=== PATIENT | female | born 1995 | race Caucasian/White ===

== ENCOUNTER 2017-05-02 13:48 | Outpatient (CLI) | payer OTHER ==
[2017-05-02 14:46] LABS: Glucose,Whole Blood 95 mg/dL (75-99)
[2017-05-02 15:32] VITALS: BP 127/78; PULSE 80; RESP 16; TEMP 97.6
--- NOTE | 2017-05-02 17:47 | P.MSEPDOC ---
Presenting Problems - Arrival Data Date of Arrival on Unit: 05/02/17 Time of Arrival on Unit: 14:00 Mode of Transport: Ambulatory - Complaint OB-Reason for Admission/Chief Complaint: Observation/Evaluation, Other Comment: back and groin pressure. moved from [facility] unable to find dr here. last saw dr at 35 weeks. hx of pi and deit controlled gestational diabetes. now 36 6/7 . Medical History - Information : 2 Para: 1 Term: 1 : 0 Abortions: Spontaneous or Elective: 0 Number of Living Children: 1 - Gestational Age Gestational Age by FERMIN (wks/days): 36 Weeks and 6 Days - History Complications: Other Review of Systems - Review of Systems Constitutional: No problems Breast: No problems ENT: No problems Cardiovascular: No problems Respiratory: No problems Gastrointestinal: No problems Genitourinary: No problems Musculoskeletal: No problems Neurological: No problems Skin: No problems Vital Signs - Temperature Temperature: 97.6 F Temperature Source: Tympanic - Pulse Right Apical Pulse Rate: 80 Pulse Assessment Method: Automatic Cuff - Respirations Respiratory Rate: 16 Oxygen Delivery Method: Room Air O2 Sat by Pulse Oximetry: 98 - Blood Pressure Right Arm Blood Pressure: 127/78 Blood Pressure Mean: 94 Blood Pressure Source: Automatic Cuff Medical Screen Scoring (Pre) - Cervical Exam Dilation: 0 cm = 0 Effacement: More than 50% = 2 Membranes: Intact - Uterine Contractions Frequency: > or = 36 weeks =2 Duration: N/A Intensity: N/A - Maternal Vital Signs Maternal Temperature: N/A Maternal Blood Pressure: N/A Signs of Preeclampsia: N/A Maternal Respirations: N/A - Maternal Trauma Maternal Trauma: N/A - Assessment Baseline FHR: 140 Heart Rate - NICHD Category: Category I (Normal) = 0 NST: Reactive Position: N/A Station: N/A - Total Score Total Score (Pre): 4 - Level of Risk Level of Risk: Low (0-5) Physician Notification (Pre) - Physician Notified Physician Notified Date: 05/02/17 Physician Notified Time: 14:20 Physician/Practitioner Notifed:: berlin/ ila Spoke With: berlin New Order Received: Yes - Notification Comment Comment: no signs of pre eclampcia/ diet controller gest diabetic blood sugar = 95. Disposition - Disposition OB Disposition: Observe, Discharge to home Discharge Date: 05/02/17 Discharge Time: 15:05 I agree with the RN Medical Screening Exam: Yes Risk & Benefit of care provided described in d/c instruction: Yes Diagnosis: PELVIC AND PERINEAL PAIN (Patient was evaluated per the RN and found to have reactive NST, no evidence of labor, no evidence of preeclampsia, and no evidence of maternal compromise.)
== END 2017-05-02 15:05 | disposition home or self-care (01) ==
LOC: FBPOP 13:48
PROVIDERS: ATTEND Obstetrics & Gynecology
DX: O99.89 Other specified diseases and conditions complicating pregnancy, childbirth and the puerperium (principal); R10.2 Pelvic and perineal pain; Z3A.36 36 weeks gestation of pregnancy
CPT/HCPCS: 59025; G0463; 99213

== ENCOUNTER 2017-05-06 19:56 | Outpatient (CLI) | payer OTHER ==
[2017-05-06 20:33] LABS: Amorphous Sediment,Urine Rare /hpf; Appearance,Urine Cloudy (Clear); Bilirubin,Urine Negative (Negative); Glucose,Urine (UA) Negative (Negative); Ketones,Urine Negative (Negative); Leukocyte Esterase,Urine Negative (Negative); Mucus,Urine Rare /hpf; Nitrite,Urine Negative (Negative); Particle Count 9504; Protein,Urine Trace (Negative); RBC,Urine 1 /hpf (0-5); Specific Gravity,Urine 1.012 (1.001-1.035); Squamous Epithelial Cell,Urine 6 /hpf (0-4); UA Billing (MACRO vs. MICRO) MICRO; Urobilinogen,Urine <2.0 mg/dL (<2.0); WBC,Urine 1 /hpf (0-5)
[2017-05-06] MEDS ORDERED: LACTATED RINGERS 1,000 ML IV ONE (21:00)
[2017-05-06 21:13] LABS: Glucose,Whole Blood 87 mg/dL (75-99)
[2017-05-06 22:02] VITALS: BP 130/83; PULSE 102; RESP 16; TEMP 97.2
--- NOTE | 2017-05-25 12:13 | P.MSEPDOC ---
Presenting Problems - Arrival Data Date of Arrival on Unit: 05/06/17 Time of Arrival on Unit: 19:56 Mode of Transport: Ambulatory - Complaint OB-Reason for Admission/Chief Complaint: Other Comment: Pt states she 'lost her mucous plug' Medical History - Information : 2 Para: 1 Term: 1 : 0 Abortions: Spontaneous or Elective: 0 Number of Living Children: 1 - Gestational Age Gestational Age by FERMIN (wks/days): 37 Weeks and 3 Days - History Complications: GDM Review of Systems - Review of Systems Constitutional: No problems Breast: No problems ENT: No problems Cardiovascular: No problems Respiratory: No problems Gastrointestinal: No problems Genitourinary: No problems Musculoskeletal: No problems Neurological: No problems Skin: No problems Vital Signs - Temperature Temperature: 97.2 F Temperature Source: Oral - Pulse Pulse Oximetery Pulse Rate: 102 Pulse Assessment Method: Pulse Oximetry - Respirations Respiratory Rate: 16 Oxygen Delivery Method: Room Air O2 Sat by Pulse Oximetry: 98 - Blood Pressure Left Arm Blood Pressure: 130/83 Blood Pressure Mean: 98 Blood Pressure Source: Automatic Cuff Medical Screen Scoring (Pre) - Cervical Exam Dilation: 1-3 cm = 1 Effacement: More than 50% = 2 Membranes: Intact - Uterine Contractions Frequency: N/A Duration: N/A Intensity: N/A - Maternal Vital Signs Signs of Preeclampsia: N/A Maternal Respirations: N/A - Maternal Trauma Maternal Trauma: N/A - Assessment Baseline FHR: 160 Heart Rate - NICHD Category: Category I (Normal) = 0 NST: Reactive Position: N/A Station: N/A - Total Score Total Score (Pre): 3 - Level of Risk Level of Risk: Low (0-5) Physician Notification (Pre) - Physician Notified Physician Notified Date: 05/06/17 Physician Notified Time: 20:48 Physician/Practitioner Notifed:: Dr. Ceron Spoke With: Dr. Ceron New Order Received: Yes - Notification Comment Comment: Orders given and read back for a PIV to be inserted and administer a bolus of 1000mL LR. Orders for discharge if FHTs WNL. Orders to call Dr. Ceron if FHTs stay tachycardic or other concerns. Disposition - Disposition OB Disposition: Discharge to home Discharge Date: 05/06/17 Discharge Time: 21:51 I agree with the RN Medical Screening Exam: Yes Risk & Benefit of care provided described in d/c instruction: Yes Diagnosis: 075.89
== END 2017-05-06 21:51 | disposition home or self-care (01) ==
LOC: FBPOP 19:56
PROVIDERS: ATTEND Obstetrics & Gynecology Obstetrics
DX: O75.89 Other specified complications of labor and delivery (principal); Z3A.37 37 weeks gestation of pregnancy
CPT/HCPCS: 59025; 96360; 81001; G0463; 99214

== ENCOUNTER 2018-09-09 12:17 | Emergency (ER) | payer OTHER ==
[2018-09-09 13:01] VITALS: RESP 16; TEMP 98.5
--- NOTE | 2018-09-09 13:11 | ED ---
General Adult HPI - General Chief complaint: Urogenital Stated complaint: UTI Time Seen by Provider: 09/09/18 13:03 Source: patient, RN notes reviewed Mode of arrival: ambulatory Limitations: no limitations - History of Present Illness Initial comments: Patient is a 23-year-old female presented to the emergency room today with a chief complaint of possible urinary tract infection. Does admit that over the last week she's had some symptoms of dysuria. Has seen small hematuria at times when she wipes. Patient does admit to increased urinary frequency. Patient states that symptoms started a week ago and she thought it was due to different toilet paper when she was having the irritation but has noticed increased frequency and dysuria now getting worse. Also a fall ordered. Patient denies any vaginal discharge. Patient states is not worried about STDs. Patient denies any recent fever, chills, shortness of breath, chest pain, numbness or tingling, headaches or visual changes, or any other complaints. - Related Data Previous Rx's Medication Instructions Recorded Nitrofurantoin Monohyd/M-Cryst 100 mg PO Q12HR #14 cap 09/09/18 [Macrobid] Phenazopyridine [Pyridium] 100 mg PO TID 3 Days day 09/09/18 Allergies Allergy/AdvReac Type Severity Reaction Status Date / Time No Known Allergies Allergy Verified 09/09/18 13:51 Review of Systems ROS Statement: Those systems with pertinent positive or pertinent negative responses have been documented in the HPI. ROS Other: All systems not noted in ROS Statement are negative. Past Medical History Past Medical History: No Reported History Additional Past Medical History / Comment(s): GDM diet controlled, preeclampsia with last , heart murmur History of Any Multi-Drug Resistant Organisms: None Reported Past Surgical History: Appendectomy Additional Past Surgical History / Comment(s): LEEP in 2015 Past Anesthesia/Blood Transfusion Reactions: No Reported Reaction Past Psychological History: No Psychological Hx Reported Smoking Status: Never smoker Past Alcohol Use History: None Reported Past Drug Use History: Marijuana - Past Family History Father Family Medical History: Hypertension Sister(s) Family Medical History: Hypertension General Exam - General Exam Comments Initial Comments: General: The patient is awake and alert, in no distress, and does not appear acutely ill. Eye: There is normal conjunctiva bilaterally. No signs of icterus. Ears, nose, mouth and throat: There are moist mucous membranes and no oral lesions. Neck: The neck is supple Cardiovascular: There is a regular rate and rhythm. No murmur, rub or gallop is appreciated. Respiratory: Lungs are clear to auscultation, respirations are non-labored, breath sounds are equal. No wheezes, stridor, rales, or rhonchi. Gastrointestinal: Abdomen soft nontender. Musculoskeletal: Normal ROM, no tenderness Neurological: A&O x 3. CN II-XII intact, There are no obvious motor or sensory deficits. Coordination appears grossly intact. Speech is normal. Skin: Skin is warm and dry and no rashes or lesions are noted. Psychiatric: Cooperative, appropriate mood & affect, normal judgment. Limitations: no limitations Course Vital Signs 09/09/18 09/09/18 12:57 14:29 Temperature 98.5 F Pulse Rate 84 73 Respiratory 16 16 Rate Blood Pressure 151/106 152/102 O2 Sat by Pulse 98 96 Oximetry Medical Decision Making - Medical Decision Making Patient reexamined at this time shows no signs of distress. Patient's son soft nontender. Patient does admit to increased urinary frequency and dysuria. Patient's urinalysis reviewed. Given dose Rocephin here in the emergency room. Will be continued on antibiotics, and thyroidism for symptoms. Advised close follow-up return to the emergency room for any symptoms increase or worsen. Urine blood pressure remained elevated here in emergency room. Was discussed with the patient. She denies any history. Doesn't family history of hypertension. Patient is advised close follow-up the family physician to have blood pressure rechecked. - Lab Data Lab Results 09/09/18 09/09/18 Range/Units 13:15 13:15 Urine Color Yellow Urine Appearance Cloudy H (Clear) Urine pH 6.0 (5.0-8.0) Ur Specific [place] 1.026 (1.001-1.035) Urine Protein 2+ H (Negative) Urine Glucose (UA) Negative (Negative) Urine Ketones Trace H (Negative) Urine Blood Moderate H (Negative) Urine Nitrite Negative (Negative) Urine Bilirubin Negative (Negative) Urine Urobilinogen 2.0 (<2.0) mg/dL Ur Leukocyte Esterase Small H (Negative) Urine RBC 48 H (0-5) /hpf Urine WBC 42 H (0-5) /hpf Ur Squamous Epith Cells 19 H (0-4) /hpf Urine Bacteria Occasional H (None) /hpf Urine Mucus Many H (None) /hpf Urine HCG, Qual Not Detected (Not Detectd) Disposition Clinical Impression: UTI (urinary tract infection), Elevated blood pressure reading Disposition: HOME SELF-CARE Condition: Good Instructions (If sedation given, give patient instructions): Urinary Tract Infection in Women (ED) Additional Instructions: Please use medication as discussed. Please follow-up with family doctor in the next 2 days of symptoms have not improved. Please return to emergency room if the symptoms increase or worsen or for any other concerns. Prescriptions: Nitrofurantoin Monohyd/M-Cryst [Macrobid] 100 mg PO Q12HR #14 cap Phenazopyridine [Pyridium] 100 mg PO TID 3 Days day Is patient prescribed a controlled substance at d/c from ED?: No Referrals: Curt Jordan MD [Primary Care Provider] - 1-2 days Time of Disposition: 14:14
[2018-09-09 13:43] LABS: Appearance,Urine Cloudy (Clear); Bacteria,Urine Occasional /hpf; Bilirubin,Urine Negative (Negative); Blood,Urine Moderate (Negative); Color,Urine Yellow; Glucose,Urine (UA) Negative (Negative); Ketones,Urine Trace (Negative); Leukocyte Esterase,Urine Small (Negative); Mucus,Urine Many /hpf; Nitrite,Urine Negative (Negative); Protein,Urine 2+ (Negative); RBC,Urine 48 /hpf (0-5); Specific Gravity,Urine 1.026 (1.001-1.035); Squamous Epithelial Cell,Urine 19 /hpf (0-4)
[2018-09-09] MEDS ORDERED: cefTRIAXone 1,000 MG VIAL (IM USE) IM ONE (14:00)
[2018-09-09 14:33] VITALS: BP 152/102; PULSE 73
== END 2018-09-09 14:51 | disposition home or self-care (01) ==
LOC: EC 12:17
DX: N39.0 Urinary tract infection, site not specified (principal); R03.0 Elevated blood-pressure reading, without diagnosis of hypertension
CPT/HCPCS: 81001; 81025; 87086; 99283; 96372; J0696

== ENCOUNTER 2019-03-12 15:37 | Emergency (ER) | payer OTHER ==
[2019-03-12] MEDS ORDERED: SODIUM CHLORIDE 0.9% 500 ML 500 ML IV ONE (15:53)
--- NOTE | 2019-03-12 16:01 | ED ---
General Adult HPI - General Chief complaint: Vaginal Bleeding Stated complaint: Female Time Seen by Provider: 03/12/19 15:51 Source: patient, RN notes reviewed Mode of arrival: ambulatory Limitations: no limitations - History of Present Illness Initial comments: 23-year-old female with a past medical history of GDM, preeclampsia, heart murmur, LEEP presents to the emergency department for a chief complaint of vaginal bleeding 1.5 months. Patient states she has had moderate bleeding that has been consistent. States she passes small clots daily. Patient does admit to being sexual active, denies any control use. Patient denies any pain with this bleeding. Patient states she tried to get into her primary care provider but they were booked. Denies any fevers or chills. Denies any dysuria.Patient has no other complaints at this time including shortness of breath, chest pain, abdominal pain, nausea or vomiting, headache, or visual changes. - Related Data Previous Rx's Medication Instructions Recorded Cephalexin [Keflex] 500 mg PO Q12HR 5 Days #10 cap 01/20/19 Allergies Allergy/AdvReac Type Severity Reaction Status Date / Time No Known Allergies Allergy Verified 03/12/19 15:47 Review of Systems ROS Statement: Those systems with pertinent positive or pertinent negative responses have been documented in the HPI. ROS Other: All systems not noted in ROS Statement are negative. Past Medical History Past Medical History: No Reported History Additional Past Medical History / Comment(s): GDM diet controlled, preeclampsia with last , heart murmur History of Any Multi-Drug Resistant Organisms: None Reported Past Surgical History: Appendectomy Additional Past Surgical History / Comment(s): LEEP in 2014 Past Anesthesia/Blood Transfusion Reactions: No Reported Reaction Past Psychological History: No Psychological Hx Reported Smoking Status: Never smoker Past Alcohol Use History: None Reported Past Drug Use History: Marijuana - Past Family History Father Family Medical History: Hypertension Sister(s) Family Medical History: Hypertension General Exam Limitations: no limitations General appearance: alert, in no apparent distress Head exam: Present: atraumatic, normocephalic, normal inspection Eye exam: Present: normal appearance, PERRL, EOMI. Absent: scleral icterus, conjunctival injection, periorbital swelling ENT exam: Present: normal exam, mucous membranes moist Neck exam: Present: normal inspection, full ROM. Absent: tenderness, men ingismus, lymphadenopathy Respiratory exam: Present: normal lung sounds bilaterally. Absent: respiratory distress, wheezes, rales, rhonchi, stridor Cardiovascular Exam: Present: regular rate, normal rhythm, normal heart sounds. Absent: systolic murmur, diastolic murmur, rubs, gallop, clicks GI/Abdominal exam: Present: soft, normal bowel sounds. Absent: distended, tenderness, guarding, rebound, rigid External exam: Present: normal external exam. Absent: erythema, swelling, lesions, lacerations, ecchymosis Speculum exam: Present: vaginal bleeding. Absent: normal speculum exam, erythema, vaginal discharge, cervical discharge, foreign body, tissue, laceration By manual exam: Present: normal by manual exam. Absent: cervical motion tenderness, adnexal tenderness, adnexal mass, uterine enlargement, uterine tenderness Neurological exam: Present: alert Psychiatric exam: Present: normal affect, normal mood Course Vital Signs 03/12/19 15:45 Temperature 98.7 F Pulse Rate 88 Respiratory 20 Rate Blood Pressure 159/91 O2 Sat by Pulse 99 Oximetry Medical Decision Making - Medical Decision Making 23-year-old female with a past medical history of gestational diabetes, preca ncer, heart murmur, LEEP presents to the emergency department for a chief complaint of vaginal bleeding times up with 5 months. Patient has had moderate bleeding that has been consistent. States she has been passing small clots at times. Denies any abdominal pain whatsoever. Denies any lightheadedness or dizziness. On exam she has minimal vaginal bleeding noted. No hemorrhage. CBC CMP unremarkable. Hemoglobin is stable at 13.8. Urine unremarkable. Trichomonas negative. Ultrasound shows no evidence of torsion. No adnexal mass or free fluid. There are multiple follicular ovarian cysts. At this time patient is stable and follow up outpatient. She does have an CHILD CARE ASSISTANT but cannot remember the name. She will follow up with them as well as primary care. She will return here she has any worsening symptoms. - Lab Data Result diagrams: 03/12/19 17:05 03/12/19 17:05 Lab Results 03/12/19 03/12/19 03/12/19 Range/Units 17:05 17:05 17:05 WBC 8.1 (3.8-10.6) k/uL RBC 5.18 (3.80-5.40) m/uL Hgb 13.8 (11.4-16.0) gm/dL Hct 42.8 (34.0-46.0) % MCV 82.6 (80.0-100.0) fL MCH 26.7 (25.0-35.0) pg MCHC 32.4 (31.0-37.0) g/dL RDW 12.9 (11.5-15.5) % Plt Count 312 (150-450) k/uL Neutrophils % 65 % Lymphocytes % 26 % Monocytes % 6 % Eosinophils % 2 % Basophils % 0 % Neutrophils # 5.3 (1.3-7.7) k/uL Lymphocytes # 2.1 (1.0-4.8) k/uL Monocytes # 0.5 (0-1.0) k/uL Eosinophils # 0.2 (0-0.7) k/uL Basophils # 0.0 (0-0.2) k/uL PT (9.0-12.0) sec INR (<1.2) APTT (22.0-30.0) sec Sodium 143 (137-145) mmol/L Potassium 4.1 (3.5-5.1) mmol/L Chloride 106 (98-107) mmol/L Carbon Dioxide 26 (22-30) mmol/L Anion Gap 11 mmol/L BUN 10 (7-17) mg/dL Creatinine 0.67 (0.52-1.04) mg/dL Est GFR (CKD-EPI)AfAm >90 (>60 ml/min/1.73 sqM) Est GFR (CKD-EPI)NonAf >90 (>60 ml/min/1.73 sqM) Glucose 88 (74-99) mg/dL Calcium 10.0 (8.4-10.2) mg/dL Total Bilirubin 0.3 (0.2-1.3) mg/dL AST 32 (14-36) U/L ALT 41 (9-52) U/L Alkaline Phosphatase 84 (38-126) U/L Total Protein 8.0 (6.3-8.2) g/dL Albumin 4.8 (3.5-5.0) g/dL Urine Color Urine Appearance (Clear) Urine pH (5.0-8.0) Ur Specific Mize (1.001-1.035) Urine Protein (Negative) Urine Glucose (UA) (Negative) Urine Ketones (Negative) Urine Blood (Negative) Urine Nitrite (Negative) Urine Bilirubin (Negative) Urine Urobilinogen (<2.0) mg/dL Ur Leukocyte Esterase (Negative) Urine RBC (0-5) /hpf Ur Squamous Epith Cells (0-4) /hpf Amorphous Sediment (None) /hpf Urine Mucus (None) /hpf Urine HCG, Qual Not Detected (Not Detectd) Trichomonas Ag (Rapid) (Negative) 03/12/19 03/12/19 03/12/19 Range/Units 17:05 17:05 17:05 WBC (3.8-10.6) k/uL RBC (3.80-5.40) m/uL Hgb (11.4-16.0) gm/dL Hct (34.0-46.0) % MCV (80.0-100.0) fL MCH (25.0-35.0) pg MCHC (31.0-37.0) g/dL RDW (11.5-15.5) % Plt Count (150-450) k/uL Neutrophils % % Lymphocytes % % Monocytes % % Eosinophils % % Basophils % % Neutrophils # (1.3-7.7) k/uL Lymphocytes # (1.0-4.8) k/uL Monocytes # (0-1.0) k/uL Eosinophils # (0-0.7) k/uL Basophils # (0-0.2) k/uL PT 9.5 (9.0-12.0) sec INR 0.9 (<1.2) APTT 23.5 (22.0-30.0) sec Sodium (137-145) mmol/L Potassium (3.5-5.1) mmol/L Chloride (98-107) mmol/L Carbon Dioxide (22-30) mmol/L Anion Gap mmol/L BUN (7-17) mg/dL Creatinine (0.52-1.04) mg/dL Est GFR (CKD-EPI)AfAm (>60 ml/min/1.73 sqM) Est GFR (CKD-EPI)NonAf (>60 ml/min/1.73 sqM) Glucose (74-99) mg/dL Calcium (8.4-10.2) mg/dL Total Bilirubin (0.2-1.3) mg/dL AST (14-36) U/L ALT (9-52) U/L Alkaline Phosphatase (38-126) U/L Total Protein (6.3-8.2) g/dL Albumin (3.5-5.0) g/dL Urine Color Yellow Urine Appearance Cloudy H (Clear) Urine pH 8.0 (5.0-8.0) Ur Specific Mize 1.031 (1.001-1.035) Urine Protein Trace H (Negative) Urine Glucose (UA) Negative (Negative) Urine Ketones Negative (Negative) Urine Blood Small H (Negative) Urine Nitrite Negative (Negative) Urine Bilirubin Negative (Negative) Urine Urobilinogen <2.0 (<2.0) mg/dL Ur Leukocyte Esterase Negative (Negative) Urine RBC 3 (0-5) /hpf Ur Squamous Epith Cells 3 (0-4) /hpf Amorphous Sediment Rare H (None) /hpf Urine Mucus Few H (None) /hpf Urine HCG, Qual (Not Detectd) Trichomonas Ag (Rapid) Negative (Negative) Disposition Clinical Impression: Dysfunctional uterine bleeding Disposition: HOME SELF-CARE Condition: Good Instructions (If sedation given, give patient instructions): Dysfunctional Uterine Bleeding (ED) Additional Instructions: Please follow up with primary care and CHILD CARE ASSISTANT in 1-2 days. Return here to the ED if you have any worsening symptoms. Is patient prescribed a controlled substance at d/c from ED?: No Referrals: Curt Jordan MD [Primary Care Provider] - 1-2 days Time of Disposition: 19:03
[2019-03-12 17:20] LABS: Basophils % (A) 0 %; Eosinophils # (A) 0.2 k/uL (0-0.7); Eosinophils % (A) 2 %; HCT 42.8 % (34.0-46.0); HGB 13.8 gm/dL (11.4-16.0); Lymphocytes # (A) 2.1 k/uL (1.0-4.8); Lymphocytes % (A) 26 %; MCH 26.7 pg (25.0-35.0); MCHC 32.4 g/dL (31.0-37.0); MCV 82.6 fL (80.0-100.0); Mean Platelet Volume 6.9; Monocytes # (A) 0.5 k/uL (0-1.0); Monocytes % (A) 6 %; Neutrophils # (A) 5.3 k/uL (1.3-7.7); Neutrophils % (A) 65 %; Platelet Count 312 k/uL (150-450); RBC 5.18 m/uL (3.80-5.40); RDW 12.9 % (11.5-15.5); WBC 8.1 k/uL (3.8-10.6)
[2019-03-12 17:26] LABS: Amorphous Sediment,Urine Rare /hpf; Appearance,Urine Cloudy (Clear); Bilirubin,Urine Negative (Negative); Blood,Urine Small (Negative); Color,Urine Yellow; Glucose,Urine (UA) Negative (Negative); Ketones,Urine Negative (Negative); Leukocyte Esterase,Urine Negative (Negative); Mucus,Urine Few /hpf; Nitrite,Urine Negative (Negative); Protein,Urine Trace (Negative); RBC,Urine 3 /hpf (0-5); Specific Gravity,Urine 1.031 (1.001-1.035); Squamous Epithelial Cell,Urine 3 /hpf (0-4); Urobilinogen,Urine <2.0 mg/dL (<2.0)
[2019-03-12 17:29] LABS: ALT 41 U/L (9-52); AST 32 U/L (14-36); African American GFR (CKD) >90 (>60 ml/min/1.73 sqM); Albumin 4.8 g/dL (3.5-5.0); Alkaline Phosphatase 84 U/L (38-126); Anion Gap 11 mmol/L; Blood Urea Nitrogen 10 mg/dL (7-17); Carbon Dioxide 26 mmol/L (22-30); Chloride 106 mmol/L (98-107); Glucose 88 mg/dL (74-99); Potassium 4.1 mmol/L (3.5-5.1); Sodium 143 mmol/L (137-145); Total Bilirubin 0.3 mg/dL (0.2-1.3)
[2019-03-12 17:33] LABS: INR 0.9 (<1.2); Partial Thromboplastin Time 23.5 sec (22.0-30.0); Prothrombin Time 9.5 sec (9.0-12.0)
--- NOTE | 2019-03-12 18:31 | US ---
EXAMINATION TYPE: US transvaginal DATE OF EXAM: 03/12/2019 COMPARISON: NONE CLINICAL HISTORY: Pain. Bleeding with clots, has been on cycle for 11 days, , Leep procedure TECHNIQUE: TV. Transvaginal sonographic images Date of LMP: 03/01/2019 EXAM MEASUREMENTS: Uterus: 6.7 x 4.6 x 3.8 cm Endometrial Stripe: 1.0 cm Right Ovary: 3.6 x 2.4 x 2.1 cm Left Ovary: 2.7 x 2.5 x 2.4 cm 1. Uterus: Anteverted cyst within cervix, wnl 2. Endometrium: wnl 3. Right Ovary: multiple follicles under 1cm 4. Left Ovary: multiple follicles under 1cm Spectral, color and waveform doppler imaging shows good arterial and venous flow within the ovaries ; there is no evidence for ovarian torsion. 5. Bilateral Adnexa: wnl 6. Posterior cul-de-sac: wnl IMPRESSION: No evidence of ovarian torsion. No adnexal mass or free fluid. Multiple follicular ovaria n cysts.
[2019-03-12 19:16] VITALS: BP 136/91; PULSE 78; RESP 13; TEMP 98.1
[2019-03-14 09:47] LABS: C. trachomatis,PCR Negative (Neg,Equiv); Chlamydia trachomatis Source Vagina
[2019-03-14 09:50] LABS: N. gonorrhoeae,PCR Negative (Neg,Equiv); Neisseria Source Vagina
== END 2019-03-12 19:22 | disposition home or self-care (01) ==
LOC: EC 15:37
DX: N93.8 Other specified abnormal uterine and vaginal bleeding (principal); Z32.02 Encounter for pregnancy test, result negative; N83.201 Unspecified ovarian cyst, right side; N83.202 Unspecified ovarian cyst, left side
CPT/HCPCS: 36415; 76830; 80053; 81001; 81025; 85025; 85610; 85730; 87070; 87205; 87491; 87591; 87808; 93975; 96360; 99284

== ENCOUNTER 2019-11-12 13:57 | Emergency (ER) | payer OTHER ==
[2019-11-12 14:05] VITALS: TEMP 98
[2019-11-12] MEDS: LIDOCAINE 1% INJ 10MG/ML (20 ML MDV) SQ ONE (14:58)
--- NOTE | 2019-11-12 15:09 | ED ---
Skin/Abscess/FB HPI - General Chief complaint: Skin/Abscess/Foreign Body Stated complaint: infected piercing Time Seen by Provider: 11/12/19 14:33 Source: patient Mode of arrival: ambulatory Limitations: no limitations - History of Present Illness Initial comments: Patient is a 24-year-old female presenting to the emergency Department with complaints of a possible infected piercing. Patient states she's had bilateral facial dermal piercings for 1 year now to both cheeks. She states over the last week, she has noticed redness and some drainage as well as pain of her right dermal piercing. Patient states she did call the piercing place however they are unable to see her secondary to virus outbreak. Patient was told to come to the ER. Patient denies any fever, chills. She has no other complaints. Upon arrival to ER, patient is afebrile. - Related Data Previous Rx's Medication Instructions Recorded Cephalexin [Keflex] 500 mg PO Q12HR 5 Days #10 cap 01/20/19 Cephalexin [Keflex] 500 mg PO Q6H 5 Days #20 cap 11/12/19 Allergies Allergy/AdvReac Type Severity Reaction Status Date / Time No Known Allergies Allergy Verified 03/12/19 15:47 Review of Systems ROS Statement: Those systems with pertinent positive or pertinent negative responses have been documented in the HPI. ROS Other: All systems not noted in ROS Statement are negative. Past Medical History Past Medical History: No Reported History Additional Past Medical History / Comment(s): GDM diet controlled, preeclampsia with last , heart murmur History of Any Multi-Drug Resistant Organisms: None Reported Past Surgical History: Appendectomy Additional Past Surgical History / Comment(s): LEEP in 2015 Past Anesthesia/Blood Transfusion Reactions: No Reported Reaction Past Psychological History: No Psychological Hx Reported Smoking Status: Never smoker Past Alcohol Use History: None Reported Past Drug Use History: Marijuana - Past Family History Father Family Medical History: Hypertension Sister(s) Family Medical History: Hypertension General Exam - General Exam Comments Initial Comments: GENERAL: Well-appearing, well-nourished and in no acute distress. HEAD: Atraumatic, normocephalic. EYES: Pupils equal round and reactive to light, extraocular movements intact, sclera anicteric, conjunctiva are normal. ENT: TMs normal, nares patent, oropharynx clear without exudates. Moist mucous membranes. NECK: Normal range of motion, supple without lymphadenopathy or JVD. LUNGS: Breath sounds clear to auscultation bilaterally and equal. No wheezes rales or rhonchi. HEART: Regular rate and rhythm without murmurs, rubs or gallops. ABDOMEN: Soft, nontender, normoactive bowel sounds. No guarding, no rebound. No masses appreciated. : Deferred EXTREMITIES: Normal range of motion, no pitting or edema. No clubbing or cyanosis. SKIN: Warm, Dry, normal turgor. Patient has multiple facial piercings. Patient has bilateral cheek dermal piercings. The right piercing is erythematous and tender to the touch, with mild drainage. The piercing is slightly dislodged. Limitations: no limitations Course Vital Signs 11/12/19 11/12/19 11/12/19 13:59 14:05 15:05 Temperature 98.0 F Pulse Rate 86 83 Respiratory 18 20 20 Rate Blood Pressure 185/111 169/96 O2 Sat by Pulse 98 99 Oximetry 11/12/19 16:02 Temperature 98.0 F Pulse Rate 83 Respiratory 20 Rate Blood Pressure 169/96 O2 Sat by Pulse 99 Oximetry Procedures - Forgein Body Removal Soft Tissue Consent Obtained: verbal consent Site: face (Right cheek) Anesthetic Used: lidocaine 1% Amount (mLs): 2 Foreign Body Suspected: Other (Infected Dermal piercing) Foreign Body Removed: yes Foreign Body Removal Technique: Instrumentation Patient Tolerated Procedure: well Medical Decision Making - Medical Decision Making Patient is a 24-year-old female presenting with an infected right cheek dermal piercing x 1 week. Vitals are stable. There is some mild erythema and t enderness to the touch around the piercing. The piercing was removed using local anesthetic. Patient tolerated procedure well. Topical antibiotic and a bandage was applied. Patient will be started on Keflex. She is stable for discharge at this time. Return parameters were discussed with the patient she verbalized understanding. Case discussed with Dr. Villanueva. Disposition Clinical Impression: Infected pierced face Disposition: HOME SELF-CARE Condition: Stable Instructions (If sedation given, give patient instructions): Cellulitis (ED) Additional Instructions: Please return to the Emergency Department if symptoms worsen or any other c oncerns. Take antibiotic as prescribed. Prescriptions: Cephalexin [Keflex] 500 mg PO Q6H 5 Days #20 cap Is patient prescribed a controlled substance at d/c from ED?: No Referrals: Curt Jordan MD [Primary Care Provider] - 1-2 days
[2019-11-12 16:01] VITALS: RESP 20
[2019-11-12 16:02] VITALS: BP 169/96; PULSE 83
== END 2019-11-12 17:41 | disposition home or self-care (01) ==
LOC: EC 13:57
DX: L08.89 Other specified local infections of the skin and subcutaneous tissue (principal)
CPT/HCPCS: 10120; 99283

== ENCOUNTER 2020-01-23 06:27 | Emergency (ER) | payer OTHER ==
[2020-01-23 06:38] VITALS: BP 158/94; PULSE 68; RESP 18; TEMP 97.8
[2020-01-23] MEDS ORDERED: PROPARACAINE 0.5% OPHTH DROPS 15 ML BTL BOTH EYES STA (06:59)
[2020-01-23] MEDS ORDERED: OFLOXACIN 0.3% OPHTH DROPS 5 ML BOTTLE RIGHT EYE STA (06:59)
[2020-01-23] MEDS ORDERED: AMOXIC-POT CLAV 875MG STARTER PACK 2 TAB BTL PO STA (06:59)
--- NOTE | 2020-01-23 07:06 | ED ---
ENT HPI - General Source: patient, RN notes reviewed, old records reviewed Mode of arrival: ambulatory Limitations: no limitations <Marlin Austin - Last Filed: 01/23/20 07:27> <Mari Leos - Last Filed: 01/24/20 02:01> - General Chief complaint: ENT Stated complaint: Right eye swelling Time Seen by Provider: 01/23/20 06:46 - History of Present Illness Initial comments: Patient is a 24-year-old female who presents the emergency department today with complaints of right eye pain, irritation and drainage since 8 PM last night. Patient complains of no pain with extra ocular eye movements. She reports that she has noticed some purulent drainage from the eye. She denies any history of sick contacts. She denies any headaches, double vision. (Marlin Austin) - Related Data Previous Rx's Medication Instructions Recorded Cephalexin [Keflex] 500 mg PO Q12HR 5 Days #10 cap 01/20/19 Cephalexin [Keflex] 500 mg PO Q6H 5 Days #20 cap 11/12/19 Amoxic-Pot Clav 875-125Mg 1 tab PO Q12HR #20 tablet 01/23/20 [Augmentin 875-125] Ofloxacin 0.3% Ophth Soln [Ocuflox 1 - 2 drops RIGHT EYE QID #1 bottle 01/23/20 Ophth Soln] Allergies Allergy/AdvReac Type Severity Reaction Status Date / Time No Known Allergies Allergy Verified 01/23/20 06:38 Review of Systems ROS Other: All systems not noted in ROS Statement are negative. <Marlin Austin - Last Filed: 01/23/20 07:27> ROS Other: All systems not noted in ROS Statement are negative. <Mari Leos - Last Filed: 01/24/20 02:01> ROS Statement: Those systems with pertinent positive or pertinent negative responses have been documented in the HPI. Past Medical History Past Medical History: No Reported History Additional Past Medical History / Comment(s): GDM diet controlled, preeclampsia with last , heart murmur History of Any Multi-Drug Resistant Organisms: None Reported Past Surgical History: Appendectomy Additional Past Surgical History / Comment(s): LEEP in 2015 Past Anesthesia/Blood Transfusion Reactions: No Reported Reaction Past Psychological History: No Psychological Hx Reported Smoking Status: Never smoker Past Alcohol Use History: None Reported Past Drug Use History: Marijuana - Past Family History Father Family Medical History: Hypertension Sister(s) Family Medical History: Hypertension <Kari Austinily - Last Filed: 01/23/20 07:27> General Exam Limitations: no limitations General appearance: alert, in no apparent distress Head exam: Present: atraumatic, normocephalic, normal inspection Eye exam: Present: PERRL, EOMI. Absent: normal appearance (erythema and drainage from right eye, no proptosis. Surrounding erythema and swelling to upper and lower eyelid. No pain with EOM. ), scleral icterus, conjunctival injection, periorbital swelling ENT exam: Present: normal exam, normal oropharynx, mucous membranes moist Neck exam: Present: normal inspection. Absent: tenderness, meningismus, lymphadenopathy Respiratory exam: Present: normal lung sounds bilaterally. Absent: respiratory distress, wheezes, rales, rhonchi, stridor Cardiovascular Exam: Present: regular rate, normal rhythm, normal heart sounds. Absent: systolic murmur, diastolic murmur, rubs, gallop, clicks GI/Abdominal exam: Present: soft, normal bowel sounds. Absent: distended, tenderness, guarding, rebound, rigid Extremities exam: Present: normal inspection, full ROM, normal capillary refill. Absent: tenderness, pedal edema, joint swelling, calf tenderness Back exam: Present: normal inspection Neurological exam: Present: alert, oriented X3, CN II-XII intact Psychiatric exam: Present: normal affect, normal mood Skin exam: Present: warm, dry, intact, normal color. Absent: rash <Marlin Austin - Last Filed: 01/23/20 07:27> - General Exam Comments Initial Comments: 24 -year-old female. No distress. (Marlin Austin) Course Vital Signs 01/23/20 06:33 Temperature 97.8 F Pulse Rate 68 Respiratory 18 Rate Blood Pressure 158/94 O2 Sat by Pulse 99 Oximetry Medical Decision Making <Marlin Austin - Last Filed: 01/23/20 07:27> <Mari Leos - Last Filed: 01/24/20 02:01> - Medical Decision Making 24-year-old female presents by started today with right eye irritation and drainage and redness for the past 12 hours. She reports she will comply crusted over. She does have some purulent drainage noted at the eye. She also some surrounding swelling around the upper and lower eyelid. No pain with extraocular eye movements. Pressures are normal at 15 bilaterally. Fluorescein eye exam was performed shows no ulceration or abrasion to the cornea. At this time Patient will be started on Augmentin to cover for the swelling around the eyelids for minor periorbital cellulitis but also will be started on ofloxacin drops. Advised following up with ophthalmology and return parameters were discussed. (Marlin Austin) I was available for consultation in the emergency department. The history and physical exam were done by the midlevel provider. I was consulted for this patients care. I reviewed the case with the midlevel provider and based on their presentation of the patient, I agree with the assessment, medical decision making and plan of care as documented. Chart was dictated using [employer] dictation software. Attempts were made to correct any dictation errors however some typographical errors may persist. Patient was seen during a national state of emergency due to the Covid-19 pandemic. (Mari Leos) Disposition Is patient prescribed a controlled substance at d/c from ED?: No If prescribed controlled substance>3 days was MAPS reviewed?: Prescribed <3 Days If opioid is for acute pain is fill amount 7 days or less?: No If Rx opioid, was Start Talking consent form obtained?: No Time of Disposition: 07:28 <Marlin Austin - Last Filed: 01/23/20 07:27> <Mari Leos - Last Filed: 01/24/20 02:01> Clinical Impression: Conjunctivitis Disposition: HOME SELF-CARE Condition: Good Instructions (If sedation given, give patient instructions): Conjunctivitis (ED) Additional Instructions: Please use medication as discussed. Please follow up with family doctor if symptoms have not improved over the next two days. Please return to the emergency room if your symptoms increase or worsen or for any other concerns. Prescriptions: Amoxic-Pot Clav 875-125Mg [Augmentin 875-125] 1 tab PO Q12HR #20 tablet Ofloxacin 0.3% Ophth Soln [Ocuflox Ophth Soln] 1 - 2 drops RIGHT EYE QID #1 bottle Referrals: Curt Jordan MD [Primary Care Provider] - 1-2 days
[2020-01-23] MEDS ORDERED: FLUORESCEIN STRIPS 1 MG STRIP RIGHT EYE ONE (07:11)
== END 2020-01-23 07:42 | disposition home or self-care (01) ==
LOC: EC 06:27
DX: H10.9 Unspecified conjunctivitis (principal)
CPT/HCPCS: 99283

== ENCOUNTER 2020-10-04 21:09 | Emergency (ER) | payer OTHER ==
[2020-10-04 21:14] VITALS: BP 161/105; PULSE 84; RESP 18; TEMP 98.1
[2020-10-04 22:29] LABS: Appearance,Urine Clear (Clear); Bacteria,Urine Rare /hpf; Bilirubin,Urine Negative (Negative); Blood,Urine Moderate (Negative); Calcium Oxalate Crystals,Urine Occasional /hpf; Color,Urine Yellow; Glucose,Urine (UA) Negative (Negative); Ketones,Urine Negative (Negative); Leukocyte Esterase,Urine Negative (Negative); Mucus,Urine Moderate /hpf; Nitrite,Urine Negative (Negative); Protein,Urine Trace (Negative); RBC,Urine 2 /hpf (0-5); Specific Gravity,Urine 1.028 (1.001-1.035); Squamous Epithelial Cell,Urine 1 /hpf (0-4); Urobilinogen,Urine <2.0 mg/dL (<2.0); WBC,Urine 2 /hpf (0-5)
--- NOTE | 2020-10-04 23:14 | US ---
EXAMINATION TYPE: Transabdominal DATE OF EXAM: 10/04/2020 10:50 PM COMPARISON: US. This is first US for this . CLINICAL HISTORY: bleeding. Bleeding x 1 day. Hx LEEP procedure, appendectomy. . EXAM PERFORMED: Transvaginal (TV) and Transabdominal (TA) EXAM MEASUREMENTS: GESTATIONAL AGE / DATING Physician Established: (10 weeks/2 days) EDC: 04/30/2021 Dates by LMP: Unknown. Dates by First Scan: This is first scan. Dates by Current Scan for: (6 weeks/5 days) EDC: 05/25/2021. No heart tones visualized at this time by ultrasound. MATERNAL ANATOMY Uterus: 9.8 x 6.1 x 5.4 cm. Retroverted. Right Ovary: 3.9 x 2.6 x 2.1 cm. Measures upper limits of normal versus slightly enlarged. Left Ovary: 3.8 x 2.0 x 2.0 cm. Measures upper limits of normal versus slightly enlarged. Area of mi xed echogenicity and peripheral vascularity seen: 1.5 x 1.2 x 1.0 cm. Post CDS / Adnexa: Hypoechoic-anechoic fluid seen in CDS: 1.3 x 1.2 x 0.6 cm. Presence of free fluid: Yes, in CDS. Presence of corpus luteal cyst: Area of mixed echogenicity and peripheral vascularity seen in left ov joshua: 1.5 x 1.2 x 1.0 cm. Presence of subchorionic bleed: Possible-Slightly hypoechoic area seen adjacent to the gestational sa c: 2.8 x 2.1 x 2.3 cm. GESTATION / SURVEY CRL: 0.82 cm. (6 weeks/5 days) Yolk Sac (normal less than 6mm): Not seen. Heart Rate: No heart tones visualized at this time by ultrasound. IUP: Possible CRL seen, no hear tones seen at this time. Date of LMP: Unknown. Beta HcG (if available): Not available. IMPRESSION: Findings are suggestive of intrauterine demise at approximately 6 weeks and 5 days gestation.
--- NOTE | 2020-10-04 23:22 | ED ---
Female Urogenital HPI - General Chief complaint: Vaginal Bleeding Stated complaint: Vaginal bleeding, 10 weeks Time Seen by Provider: 10/04/20 21:37 Source: patient, RN notes reviewed Mode of arrival: ambulatory Limitations: no limitations - History of Present Illness Initial comments: 25-year-old female presents emergency Department with chief complaint of vaginal bleeding early . Patient states that she started bleeding today there is some minor clots no excessive bleeding. Patient is A0 currently [address] Taylor. Patient states that she had an ultrasound that showed intrauterine with heartbeat. Patient states his office. Patient has no severe pain or cramping. - Related Data Previous Rx's Medication Instructions Recorded Cephalexin [Keflex] 500 mg PO Q12HR 5 Days #10 cap 01/20/19 Cephalexin [Keflex] 500 mg PO Q6H 5 Days #20 cap 11/12/19 Amoxic-Pot Clav 875-125Mg 1 tab PO Q12HR #20 tablet 01/23/20 [Augmentin 875-125] Ofloxacin 0.3% Ophth Soln [Ocuflox 1 - 2 drops RIGHT EYE QID #1 bottle 01/23/20 Ophth Soln] Allergies Allergy/AdvReac Type Severity Reaction Status Date / Time No Known Allergies Allergy Verified 10/04/20 21:12 Review of Systems ROS Statement: Those systems with pertinent positive or pertinent negative responses have been documented in the HPI. ROS Other: All systems not noted in ROS Statement are negative. Past Medical History Past Medical History: No Reported History Additional Past Medical History / Comment(s): GDM diet controlled, preeclampsia with last , heart murmur, History of Any Multi-Drug Resistant Organisms: None Reported Past Surgical History: Appendectomy Additional Past Surgical History / Comment(s): LEEP in 2015, Past Anesthesia/Blood Transfusion Reactions: No Reported Reaction Past Psychological History: No Psychological Hx Reported Smoking Status: Never smoker Past Alcohol Use History: None Reported Past Drug Use History: Marijuana - Past Family History Father Family Medical History: Hypertension Sister(s) Family Medical History: Hypertension General Exam Limitations: no limitations General appearance: alert, in no apparent distress Head exam: Present: atraumatic, normocephalic, normal inspection Eye exam: Present: normal appearance, PERRL, EOMI. Absent: scleral icterus, conjunctival injection, periorbital swelling ENT exam: Present: normal exam, normal oropharynx, mucous membranes moist Neck exam: Present: normal inspection, full ROM. Absent: tenderness, meningismus, lymphadenopathy Respiratory exam: Present: normal lung sounds bilaterally. Absent: respiratory distress, wheezes, rales, rhonchi, stridor Cardiovascular Exam: Present: regular rate, normal rhythm, normal heart sounds. Absent: systolic murmur, diastolic murmur, rubs, gallop, clicks GI/Abdominal exam: Present: soft, normal bowel sounds. Absent: distended, tenderness, guarding, rebound, rigid Course Vital Signs 10/04/20 21:10 Temperature 98.1 F Pulse Rate 84 Respiratory 18 Rate Blood Pressure 161/105 O2 Sat by Pulse 98 Oximetry Medical Decision Making - Medical Decision Making Ultrasound shows evidence of demise. Patient does not have excessive bleeding or hemorrhaging at this time. She'll follow-up with Dr. estrada instructed to call tomorrow morning. Return parameters were discussed. - Lab Data Lab Results 10/04/20 Range/Units 21:14 Urine Color Yellow Urine Appearance Clear (Clear) Urine pH 6.0 (5.0-8.0) Ur Specific [place] 1.028 (1.001-1.035) Urine Protein Trace H (Negative) Urine Glucose (UA) Negative (Negative) Urine Ketones Negative (Negative) Urine Blood Moderate H (Negative) Urine Nitrite Negative (Negative) Urine Bilirubin Negative (Negative) Urine Urobilinogen <2.0 (<2.0) mg/dL Ur Leukocyte Esterase Negative (Negative) Urine RBC 2 (0-5) /hpf Urine WBC 2 (0-5) /hpf Ur Squamous Epith Cells 1 (0-4) /hpf Calcium Oxalate Crystal Occasional H (None) /hpf Urine Bacteria Rare H (None) /hpf Urine Mucus Moderate H (None) /hpf Disposition Clinical Impression: Miscarriage, demise Disposition: HOME SELF-CARE Condition: Stable Instructions (If sedation given, give patient instructions): Miscarriage (ED) Additional Instructions: Please return to the Emergency Department if symptoms worsen or any other concerns. Is patient prescribed a controlled substance at d/c from ED?: No Referrals: Curt Jordan MD [Primary Care Provider] - 1-2 days Selene Taylor MD [STAFF PHYSICIAN] - 1-2 days Time of Disposition: 23:22
== END 2020-10-04 23:29 | disposition home or self-care (01) ==
LOC: EC 21:09
DX: O03.9 Complete or unspecified spontaneous abortion without complication (principal); O36.4XX0 Maternal care for intrauterine death, not applicable or unspecified; O99.321 Drug use complicating pregnancy, first trimester; F12.90 Cannabis use, unspecified, uncomplicated; Z3A.10 10 weeks gestation of pregnancy
CPT/HCPCS: 76801; 76817; 81001; 99284

== ENCOUNTER → 2021-02-15 | Outpatient (CLI) | payer OTHER ==
[~2021-02-15] MED LIST: METHOTREXATE SODIUM (PF) 25 MG/ML 2 ML VIAL IM NR
[2021-02-15 14:40] VITALS: BP 135/85; PULSE 72; RESP 18; TEMP 98.2
[2021-02-15 15:03] LABS: Basophils # (A) 0.1 k/uL (0-0.2); Basophils % (A) 1 %; Eosinophils # (A) 0.2 k/uL (0-0.7); Eosinophils % (A) 1 %; HCT 42.1 % (34.0-46.0); HGB 13.8 gm/dL (11.4-16.0); Lymphocytes # (A) 2.3 k/uL (1.0-4.8); Lymphocytes % (A) 20 %; MCHC 32.8 g/dL (31.0-37.0); MCV 85.6 fL (80.0-100.0); Mean Platelet Volume 7.3; Monocytes # (A) 0.5 k/uL (0-1.0); Monocytes % (A) 5 %; Neutrophils # (A) 8.2 k/uL (1.3-7.7); Neutrophils % (A) 72 %; Platelet Count 345 k/uL (150-450); RBC 4.92 m/uL (3.80-5.40); RDW 12.8 % (11.5-15.5); WBC 11.3 k/uL (3.8-10.6)
[2021-02-15 15:07] LABS: ALT 35 U/L (4-34); AST 25 U/L (14-36); African American GFR (CKD) >90 (>60 ml/min/1.73 sqM); Blood Urea Nitrogen 5 mg/dL (7-17); Non-African American GFR(CKD) >90 (>60 ml/min/1.73 sqM)
[2021-02-15 15:24] LABS: HCG,Quantitative Serum 13817.8 mIU/mL
== END ==
LOC: PROCWHC3 14:28
PROVIDERS: ATTEND Obstetrics & Gynecology
DX: O00.109 Unspecified tubal pregnancy without intrauterine pregnancy (principal); Z3A.00 Weeks of gestation of pregnancy not specified
CPT/HCPCS: 86900; 86901; 82565; 84450; 84460; 84520; 85025; 86850; 84702; 96402; J9260

== ENCOUNTER 2021-02-17 21:20 | Inpatient (IN) | payer OTHER ==
[2021-02-17] MEDS: ONDANSETRON 4 MG/2 ML VIAL IVP STA (21:35)
[2021-02-17] MEDS ORDERED: PHENYLEPHRINE-0.9% NACL SYG 1,000 MCG/10 ML SYRINGE ONE (21:46)
[2021-02-17] MEDS ORDERED: GLYCOPYRROLATE 0.2 MG/ML 2 ML VIAL ONE (21:46)
[2021-02-17] MEDS ORDERED: LIDOCAINE 1% INJ 10MG/ML (20 ML MDV) ONE ×2 (21:46)
[2021-02-17] MEDS ORDERED: NEOSTIGMINE 1 MG/ML 10 ML VIAL ONE (21:46)
[2021-02-17] MEDS ORDERED: ROCURONIUM 10 MG/ML (5 ML VIAL) IV ONE (21:46)
[2021-02-17] MEDS ORDERED: ePHEDrine SULFATE/0.9% NACL/PF 50 MG/5 ML SYRINGE IV ONE (21:46)
[2021-02-17] MEDS ORDERED: SUCCINYLCHOLINE CHLORIDE 100 MG/5 ML SYR IV ONE (21:46)
[2021-02-17] MEDS ORDERED: PROPOFOL 10 MG/ML 20 ML VIAL IV ONE (21:46)
[2021-02-17] MEDS ORDERED: IV FLUID CONTINUATION 1,000 ML IV ONE ×2 (21:48)
--- NOTE | 2021-02-17 21:55 | ED ---
General Adult HPI - General Chief complaint: Vaginal Bleeding Stated complaint: Vaginal Bleeding Source: RN/MD, EMS Mode of arrival: EMS - History of Present Illness Initial comments: Patient is a 25-year-old female who is currently approximately 8 weeks who presents emergency Department as a transfer from [facility]. She presented there and states that she had 20 minute onset of excruciating abdominal pain. Originally at their facility she was hemodynamically stable. Patient quickly became pale, diaphoretic with worsening pain. She did develop hypotension. Provider at their facility found that the patient was given methotrexate 2 days ago at our facility for ectopic . She does follow with Dr. Taylor. 2 large bore IVs were established, the patient was given 2 L of normal saline. 2 bags of O- blood was hung on the patient she was transferred here for [facility] care. I did notify Dr. Ruffin of the patient's transfer prior to her leaving [facility]. The patient denies any vaginal bleeding. No other alleviating, precipitating or modifying factors - Related Data Home Medications Medication Instructions Recorded Confirmed No Known Home Medications 02/15/21 02/17/21 Allergies Allergy/AdvReac Type Severity Reaction Status Date / Time No Known Allergies Allergy Verified 02/17/21 21:36 Review of Systems ROS Statement: Those systems with pertinent positive or pertinent negative responses have been documented in the HPI. ROS Other: All systems not noted in ROS Statement are negative. Past Medical History Past Medical History: No Reported History Additional Past Medical History / Comment(s): GDM diet controlled, preeclampsia with last , heart murmur, History of Any Multi-Drug Resistant Organisms: None Reported Past Surgical History: Appendectomy Additional Past Surgical History / Comment(s): LEEP in 2015, Past Anesthesia/Blood Transfusion Reactions: No Reported Reaction Past Psychological History: No Psychological Hx Reported Smoking Status: Never smoker Past Alcohol Use History: None Reported Past Drug Use History: Marijuana - Past Family History Father Family Medical History: Hypertension Sister(s) Family Medical History: Hypertension Course Vital Signs 02/17/21 02/17/21 21:25 21:30 Pulse Rate 62 72 Respiratory 16 12 Rate Blood Pressure 114/44 86/53 O2 Sat by Pulse 100 98 Oximetry Medical Decision Making - Medical Decision Making Upon arrival patient is promptly placed in a trauma bay 2. Dr. ceron is already at bedside and OR team has been called in. Patient is placed on continuous pulse ox and cardiac monitoring. We do originally obtain a blood pressure of 114 systolic. Patient has received 1 bag of packed red blood cells. A second bag is infusing on a pressure bag at this time. Throughout the evaluation of the patient she does have worsening blood pressures. Because of this a rapid red chest is ordered on the patient. We do not obtain laboratory studies at this time as blood is actively infusing. Dr. Ceron does discuss taking the patient to the OR. Patient agreed to this and she was taken to the OR in critical condition Disposition Clinical Impression: Ectopic , Hypotension Disposition: ADMITTED IP TO THIS HOSP Condition: Serious Is patient prescribed a controlled substance at d/c from ED?: No Decision to Admit Reason: Admit from EC Decision Date: 02/17/21 Decision Time: 21:55
[2021-02-17] MEDS ORDERED: BUPIVACAINE (PF) 0.25% 30 ML VIAL SQ ONE ×2 (22:14→22:54)
[2021-02-17] MEDS ORDERED: SODIUM CHLORIDE 0.9% 1,000 ML IV ONE (22:23)
[2021-02-17] MEDS ORDERED: LACTATED RINGERS 1,000 ML IV ONE (22:23)
--- NOTE | 2021-02-17 22:52 | P.OP ---
Date of Procedure: 02/17/21 Preoperative Diagnosis: Ectopic , ruptured Postoperative Diagnosis: Ruptured ectopic with hemoperitoneum Procedure(s) Performed: Operative laparoscopy, left salpingectomy, evacuation of hemoperitoneum Anesthesia: GETA Surgeon: Shama Ceron Estimated Blood Loss (ml): 5 IV fluids (ml): 2,000 Urine output (ml): 100 Pathology: other (Left fallopian tube with ectopic ) Condition: stable Disposition: PACU Indications for Procedure: Ruptured ectopic , left fallopian tube Operative Findings: Hemoperitoneum, ruptured left ectopic Description of Procedure: Patient was seen in the emergency department and noted to be in extreme discomfort, patient was counseled on operative laparoscopy given known ectopic . Patient was taken back to the operative suite where general anesthesia was obtained without difficulty by the anesthesia department. She was prepped and draped in normal sterile fashion in the dorsal lithotomy po sition. A speculum was placed in the vagina the anterior lip of the cervix was visualized and grasped with a single-tooth tenaculum. [place] uterine manipulator was advanced into the cervix as a means to maybe the uterus throughout the procedure. A red rubber catheter was then used to drain the bladder partially 100 mL of clear yellow urine. This was left in place. Attention then turned the patient's abdomen where in the umbilical fold a small skin incision is made. Through this incision the Veress needle is placed. Once the Veress needle was deemed to be in the appropriate position with a drop of CO2 pressure with insufflation of CO2 gas CO2 insufflation was allowed to occur. A 5 mm trocar and sleeve was placed through the skin incision and toward the pneumoperitoneum. The above-noted findings were visualized. At this time and additional port site on the patient's right mid abdomen was placed. This is a 5 mm trocar and placed under direct visualization. The suction rf engineer was then placed into the abdomen and the pelvis was cleared of clots and debris. The left fallopian tube was then visualized the LigaSure [place] curved was placed into the abdomen the mesosalpinx was coagulated transected in the fallopian tube was transected. This was placed in the anterior cul-de-sac. An additional port site was placed in the patient's left mid abdomen, this is a 10 mm port placed under direct visualization. An Endo Catch bag was placed through the 10 mm port the left fallopian tube with ectopic was placed into the Endo Catch bag. This was removed through the trocar site. The suction rf engineer was placed once again into the abdomen where multiple passes for removal of blood was performed. Approximately 20 40 mL of blood was removed in total. Fallopian tube site was inspected and found to be hemostatic. The uterus is noted to be normal in nature. Both ovaries were appreciated and found to be normal. The right fallopian tube was visualized and found to be normal. Blood was noted up to the upper quadrant, diaphragm. No bleeding was noted from the fallopian tube site. All instruments were then removed from the patient's abdomen. The skin inci sions were closed with 4-0 Vicryl in a subcuticular fashion. The single tooth tenaculum was taken off of the anterior lip of the cervix, the uterine macular was removed. No bleeding was appreciated vaginally. All counts were noted to be correct 2. Patient did tolerate procedure well and was taken the recovery room awake in stable condition.
--- NOTE | 2021-02-17 22:53 | P.HPOB ---
History of Present Illness H&P Date: 02/17/21 Chief Complaint: Ruptured ectopic This is a 25-year-old 002 with known left ectopic diagnosed on 02/15 and treated with methotrexate. Patient presented to [facility] approximately 1 hour ago with complaints of severe abdominal pain. States she notes slight vaginal bleeding. Patient is noted to be significantly uncomfortable and unable to get more history. Given patient's unstable blood pressures, pain patient taken straight to the operating suite. Review of Systems Constitutional: Denies chills, Denies fever Ears, nose, mouth and throat: Denies headache Cardiovascular: Denies leg edema Respiratory: Denies dyspnea Gastrointestinal: Reports as per HPI, Reports abdominal pain Genitourinary: Reports Past Medical History Past Medical History: No Reported History Additional Past Medical History / Comment(s): GDM diet controlled, preeclampsia with last , heart murmur, History of Any Multi-Drug Resistant Organisms: None Reported Past Surgical History: Appendectomy Additional Past Surgical History / Comment(s): LEEP in 2014, Past Anesthesia/Blood Transfusion Reactions: No Reported Reaction Past Psychological History: No Psychological Hx Reported Smoking Status: Never smoker Past Alcohol Use History: None Reported Past Drug Use History: Marijuana - Past Family History Father Family Medical History: Hypertension Sister(s) Family Medical History: Hypertension Medications and Allergies Home Medications Medication Instructions Recorded Confirmed Type No Known Home Medications 02/15/21 02/17/21 History Allergies Allergy/AdvReac Type Severity Reaction Status Date / Time No Known Allergies Allergy Verified 02/17/21 21:36 Exam Osteopathic Statement: *. No significant issues noted on an osteopathic structural exam other than those noted in the History and Physical/Consult. Vital Signs Pulse Resp BP Pulse Ox 02/17/21 21:25 62 21 114/44 100 Intake and Output 02/17/21 02/17/21 02/17/21 06:59 14:59 22:59 Other: Weight 79 kg Targeted exam is performed, she is on her side in the position very uncomfortable, breathing is noted to be nonlabored heart has a regular rate and rhythm abdomen is noted to be firm and rigid, vaginal exam is deferred. Vital signs noted to be blood pressure 70/40. Assessment and Plan (1) Ectopic Current Visit: Yes Status: Acute Code(s): O00.90 - UNSPECIFIED ECTOPIC WITHOUT INTRAUTERINE SNOMED Code(s): 85205781 Plan: This 25-year-old female with known left ectopic presents to the emergency department with severe abdominal pain. Patient has noted low blood pressures therefore she is counseled for operative laparoscopy with left salpingectomy, possible open. We'll plan to monitor this patient overnight, serial CBCs.
[2021-02-17] MEDS ORDERED: HYDROcodone/APAP 5-325MG 1 EACH TAB PO STA ×2 (22:55)
[2021-02-17] MEDS ORDERED: IBUPROFEN 600 MG TAB PO PRN (22:56)
[2021-02-17] MEDS ORDERED: ACETAMINOPHEN TAB 500 MG TAB PO PRN (22:58)
[2021-02-17] MEDS ORDERED: ACETAMINOPHEN IV (For NPO) 1,000 MG in EMPTY BAG 1 BAG IVPB ONE (23:00)
[2021-02-17] MEDS ORDERED: IBUPROFEN IV 800 MG in SODIUM CHLORIDE 0.9% 250 ML IV ONE (23:00)
[2021-02-17] MEDS: HYDROmorphone 0.5 MG/0.5 ML SYRINGE IVP ONE ×2 (23:31→23:38)
[2021-02-18] MEDS: HYDROmorphone 0.5 MG/0.5 ML SYRINGE IVP ONE (00:05)
[2021-02-18] MEDS: ONDANSETRON 4 MG/2 ML VIAL IVP STA (00:25)
[2021-02-18] MEDS ORDERED: LACTATED RINGERS 1,000 ML IV SCH (04:45)
[2021-02-18 06:47] LABS: HCT 27.7 % (34.0-46.0); MCH 30.1 pg (25.0-35.0); MCHC 34.7 g/dL (31.0-37.0); MCV 86.9 fL (80.0-100.0); Mean Platelet Volume 7.6; Platelet Count 202 k/uL (150-450); RBC 3.19 m/uL (3.80-5.40); RDW 12.9 % (11.5-15.5); WBC 18.5 k/uL (3.8-10.6)
[2021-02-18 06:50] LABS: HGB 9.6 gm/dL (11.4-16.0)
[2021-02-18 08:39] VITALS: BP 124/77; PULSE 77; RESP 14; TEMP 98.6
--- NOTE | 2021-02-18 09:24 | P.DS ---
Providers Date of admission: 02/17/21 21:46 Expected date of discharge: 02/18/21 Attending physician: Shama Ceron Primary care physician: Nikki Elias - Discharge Diagnosis(es) (1) Ectopic Current Visit: Yes Status: Acute (2) S/P laparoscopic procedure Current Visit: Yes Status: Acute (3) Acute blood loss anemia Current Visit: Yes Status: Acute Hospital Course: This is a 25-year-old that presented to the hospital yesterday with acute onset abdominal pain. Patient has a known ectopic and was treated with methotrexate on 02/15. Patient states the abdominal pain started approximately 40 minutes prior to presentation at [facility]. Patient was noted to be hypotensive upon admission, with a surgical abdomen. Patient was transferred to [facility] on for surgical intervention. Patient was taken to the operating suite where operative laparoscopy with left salpingectomy, evacuation of hemoperitoneum was performed. Over 2 L of blood were evacuated from this patient's abdomen. Left fallopian tube as stated above was removed with ectopic in place. This was sent to pathology for analysis. Pedicle was noted to be hemostatic upon leaving the abdomen. No acute bleeding was appreciated at the end of the procedure. Patient's postoperative course has been uneventful. On this postoperative day #1 she is ambulating and voiding without difficulty her pain is moderately controlled. We'll plan discharge home. While in the EMS did state they told them that her hemoglobin was 12, today it is 9.6. Of note she did receive 2 units of packed red blood cells in route from [facility] to [facility]. Patient Condition at Discharge: Good Plan - Discharge Summary New Discharge Prescriptions: No Action No Known Home Medications Discharge Medication List No Known Home Medications 02/15/21 [History] Follow up Appointment(s)/Referral(s): Selene Taylor MD [STAFF PHYSICIAN] - 2 Weeks Patient Instructions/Handouts: *Surgery [facility] - Laparoscopy Discharge Instructions, Exploratory Laparoscopy (DC) Discharge Disposition: HOME SELF-CARE
== END 2021-02-18 12:37 | disposition home or self-care (01) | DRG 817 ==
LOC: EC 21:20 → 4FBP 21:46
PROVIDERS: ADMIT Obstetrics & Gynecology Obstetrics; ATTEND Obstetrics & Gynecology Obstetrics
PROC: 0UB60ZZ Excision of Left Fallopian Tube, Open Approach (ICD-10-PCS; 2021-02-17)
PROC: 0W9G4ZZ Drainage of Peritoneal Cavity, Percutaneous Endoscopic Approach (ICD-10-PCS; principal; 2021-02-17 21:48)
DX: O00.90 Unspecified ectopic pregnancy without intrauterine pregnancy (principal); K66.1 Hemoperitoneum; D62 Acute posthemorrhagic anemia; Z3A.08 8 weeks gestation of pregnancy; Z82.49 Family history of ischemic heart disease and other diseases of the circulatory system; Z86.32 Personal history of gestational diabetes
CPT/HCPCS: 85027; 86850; 86900; 86901; 86920; 88305; 99285

== ENCOUNTER → 2022-03-15 | Outpatient (CLI) | payer OTHER ==
[2022-03-15 11:43] VITALS: BMI 29.6
== END ==
LOC: DBWHC3 09:50
PROVIDERS: ATTEND Obstetrics & Gynecology
DX: O24.419 Gestational diabetes mellitus in pregnancy, unspecified control (principal); Z3A.00 Weeks of gestation of pregnancy not specified
CPT/HCPCS: G0108 ×3